=== PATIENT | male | born 1970 | race Hispanic/Latino ===

== ENCOUNTER 2021-06-13 07:07 | Day surgery (SDC) | payer BC ==
[~2021-06-13] VITALS: Ht 182.9 cm; Wt 86.2 kg
[~2021-06-13 07:07] MED LIST: LIPITOR40 M1 PO; LOSARTAN POTASS25 MG PO; METFORMIN HCL1000 MG PO
[2021-06-13 08:56] VITALS: BP 109/65
== END 2021-06-13 09:12 | disposition home or self-care (01) | DRG 951 ==
LOC: ENDO 07:07
PROVIDERS: ATTEND Surgery
PROC: 0DJD8ZZ Inspection of Lower Intestinal Tract, Via Natural or Artificial Opening Endoscopic (ICD-10-PCS; principal; 2021-06-13)
DX: Z12.11 Encounter for screening for malignant neoplasm of colon (principal); E11.9 Type 2 diabetes mellitus without complications; I10 Essential (primary) hypertension; Z79.84 Long term (current) use of oral hypoglycemic drugs

== ENCOUNTER 2022-04-04 06:54 | Day surgery (SDC) | payer BC ==
[~2022-04-04] VITALS: Ht 177.8 cm; Wt 86.2 kg
[~2022-04-04 06:54] MED LIST changes: +JARDIANCE10 MG PO; +METOPROL TAR25 MG PO
[2022-04-04 11:24] VITALS: BP 136/78
== END 2022-04-04 09:57 | disposition home or self-care (01) | DRG 726 ==
LOC: ORM 06:54
PROVIDERS: ATTEND Urology
PROC: 0VB03ZX Excision of Prostate, Percutaneous Approach, Diagnostic (ICD-10-PCS; principal; 2022-04-04)
DX: N40.1 Benign prostatic hyperplasia with lower urinary tract symptoms (principal); N13.8 Other obstructive and reflux uropathy; R35.0 Frequency of micturition; I10 Essential (primary) hypertension; E11.9 Type 2 diabetes mellitus without complications; I25.10 Atherosclerotic heart disease of native coronary artery without angina pectoris; E78.5 Hyperlipidemia, unspecified; Z87.891 Personal history of nicotine dependence
CPT/HCPCS: J1956